=== PATIENT | female | born 1955 | race Asian ===

== ENCOUNTER 2020-11-09 12:40 | Emergency (ER) | payer OTHER ==
[~2020-11-09] VITALS: Ht 144.8 cm; Wt 90.0 kg
[~2020-11-09 12:40] MED LIST: FURO40TA5 PO; HYDR100T26 PO; LOSA25TA26 PO; MONT10TA32 PO; OCD MT; POTA10CA42 PO; TERA5CAP4 PO
[2020-11-09] MEDS ORDERED: ONDANSETRON HCL 4MG/2ML INJ IV STA (13:38)
[2020-11-09] MEDS ORDERED: MORPHINE SULFATE 4 MG/ML CPJ (NOT FOR IM USE) IV STA (13:38)
[2020-11-09] MEDS ORDERED: SODIUM CHLORIDE 0.9% 1,000 ML IV ONE ×2 (13:45→17:00)
[2020-11-09 14:19] LABS: BASOPHILS % 0.5 % (0.0-2.0); EOSINOPHILS % 1.1 % (0.0-5.0); HEMOGLOBIN. 10.2 g/dL (12.0-16.0); LYMPHOCYTES % 9.7 % (20.0-50.0); MEAN CORPUSCULAR HEMOGLOBIN 28.3 pg (28.0-32.0); MEAN CORPUSCULAR VOLUME 86.6 fL (81.0-99.0); MEAN PLATELET VOLUME 8.9 fl (7.4-10.4); MONOCYTES % 9.1 % (2.0-8.0); NEUTROPHILS % 79.6 % (40.0-76.0); PLATELET 211 x1000/uL (130-400); RED BLOOD CELL COUNT 3.59 mill/uL (4.2-5.4); RED CELL DISTRIBUTION WIDTH 14.3 % (11.6-14.6)
[2020-11-09 14:22] LABS: CHLORIDE 112 mEq/L (98-107)
[2020-11-09 14:25] LABS: PROTHROMBIN TIME 10.9 sec (9.6-11.0)
[2020-11-09 16:39] LABS: CLARITY URINE CLEAR (CLEAR); COLOR URINE YELLOW (YELLOW); KETONES URINE TRACE (NEGATIVE); LEUKOCYTE ESTERASE URINE NEGATIVE (NEGATIVE); NITRITE URINE NEGATIVE (NEGATIVE); OCCULT BLOOD URINE NEGATIVE (NEGATIVE); PH URINE 5.5 (4.5-8.0); PROTEIN URINE NEGATIVE (NEGATIVE); UROBILINOGEN URINE 0.2 E.U./dL (0.2-1.0)
[2020-11-09] MEDS ORDERED: KETOROLAC 15MG/ML VIAL IV ONE (17:00)
[2020-11-09] MEDS ORDERED: MORPHINE SULFATE 4 MG/ML CPJ (NOT FOR IM USE) IV ONE (18:00)
[2020-11-09] MEDS ORDERED: IOHEXOL-300 100 ML BOTTLE ONE (19:42)
[2020-11-09] MEDS ORDERED: LEVOFLOXACIN 750MG PREMIX 150 ML IV ONE (20:00)
[2020-11-09] MEDS ORDERED: NITROGLYCERIN 0.4MG TABLET SL SL PRN (20:00)
[2020-11-09] MEDS ORDERED: ASPIRIN 81MG TABLET PO ONE (20:00)
[2020-11-09] MEDS ORDERED: FUROSEMIDE 40MG/4ML VIAL IV ONE (20:00)
[2020-11-10 03:01] VITALS: BP 96/53
== END 2020-11-10 03:04 | disposition short-term general hospital (02) ==
LOC: ER 12:40
DX: I11.0 Hypertensive heart disease with heart failure (principal); I50.9 Heart failure, unspecified; M54.5 Low back pain; D64.9 Anemia, unspecified; E11.9 Type 2 diabetes mellitus without complications; Z90.710 Acquired absence of both cervix and uterus; Z90.49 Acquired absence of other specified parts of digestive tract; Z88.0 Allergy status to penicillin; Z20.822 Contact with and (suspected) exposure to COVID-19
CPT/HCPCS: 36415; 71045; 74177; 80053; 81003; 82962; 83605; 83880; 84484; 85025; 85610; 87040; 93005; 96361; 96365; 96375; 96376; 99285; C9803; J1885; J1940; J1956; J2270; J2405; J7030; Q9967; U0003; U0005